=== PATIENT | male | born 1955 | race American Indian/Alaskan Native ===

== ENCOUNTER 2022-04-05 08:47 | Emergency (ER) | payer MEDICARE ==
--- NOTE | 2022-04-05 09:25 | Emergency Department Report ---
ED General Adult HPI - General Chief complaint: Urogenital-Male Stated complaint: CHASE CATHER Time Seen by Provider: 04/05/22 09:10 Source: patient Mode of arrival: Ambulatory Limitations: No Limitations - History of Present Illness Initial comments: The patient was evaluated in the emergency department for symptoms described in the history of present illness. He/she was evaluated in the context of the global COVID-19 pandemic, which necessitated consideration that the patient might be at risk for infection with the virus that causes COVID-19. In stitutional protocols and algorithms that pertain to the evaluation of patients at risk for COVID-19 are in a state of rapid change based on information released by regulatory bodies including the CDC and federal and state organizations. These policies and algorithms were followed during the patient's care in the emergency department. Please note that these policies, procedures and recommendations changed on a rapid basis. This patient is a pleasant and cooperative 67-year-old gentleman, with a chronic indwelling suprapubic Chase catheter, secondary to difficulty with urination secondary to BPH, presents to the emergency room today with a complaint of clogged and nonfunctional suprapubic Chase catheter. He typically follows with [facility], and reports getting his catheter changed once every 4 to 5 weeks. Denies fever, chills, additional complaints, and rectal pain. He subjectively does not feel like he has an infection today. His catheter was discontinued, and replaced in typical sterile fashion, with immediate release of 1100 cc of urine, and patient endorsed complete resolution of symptoms. He endorses readiness for discharge at this time, and denies additional injuries and complaints he reports he is reliable to follow-up with his outpatient physician. -: Sudden Severity scale (0 -10): 10 Consistency: now resolved Improves with: other (Placement of suprapubic Chase catheter) Worsens with: other (Nonfunctioning Chase cath) Associated Symptoms: denies other symptoms - Related Data Allergies Allergy/AdvReac Type Severity Reaction Status Date / Time No Known Allergies Allergy Unverified 04/05/22 09:03 ED Review of Systems ROS: Stated complaint: CHASE CATHER Other details as noted in HPI Comment: All other systems reviewed and negative Gastrointestinal: as per HPI (Suprapubic abdominal pain and distention) Genitourinary: as per HPI, other (Clogged Chase catheter. Inability to urinate). denies: discharge, testicular pain, testicular mass ED Physical Exam - General Limitations: No Limitations General appearance: alert, anxious, in distress - Head Head exam: Present: atraumatic, normocephalic - Eye Eye exam: Present: normal appearance, EOMI. Absent: nystagmus - ENT ENT exam: Present: normal exam, normal orophraynx, mucous membranes moist, normal external ear exam - Neck Neck exam: Present: normal inspection, full ROM. Absent: tenderness, meningismus - Respiratory Respiratory exam: Present: normal lung sounds bilaterally. Absent: respiratory distress, wheezes, rales, rhonchi, stridor, decreased breath sounds - Cardiovascular Cardiovascular Exam: Present: regular rate, normal rhythm, normal heart sounds. Absent: bradycardia, tachycardia, irregular rhythm, systolic murmur, diastolic murmur, rubs, gallop - GI/Abdominal GI/Abdominal exam: Present: soft, distended, other (Suprapubic distention is noted. Suprapubic Chase catheter is noted.). Absent: tenderness, guarding, rebound, rigid - Rectal Rectal exam: Present: deferred - exam: Present: normal inspection, other (Chaperoned by nurse Zehra Jones) External exam: Present: normal external exam - Extremities Exam Extremities exam: Present: normal inspection, full ROM, other (2+ pulses noted in the bilateral lower extremities, and left upper extremity. Patient has a cast/splint in place in the right upper extremity. Moving fingers without diffi culty in the upper extremities.). Absent: pedal edema, calf tenderness - Back Exam Back exam: Present: normal inspection. Absent: tenderness, CVA tenderness (R), CVA tenderness (L), paraspinal tenderness, vertebral tenderness - Neurological Exam Neurological exam: Present: alert, oriented X3, other (No facial droop. Tongue midline. Extraocular movements intact bilaterally. Facial sensation intact to light touch in V1, V2, V3 distribution bilaterally. 5 and a 5 strength in 4 extremities. Sensation intact to light touch in 4 extremities.) - Psychiatric Psychiatric exam: Present: anxious (Prior to placement of Chase cath) - Skin Skin exam: Present: warm, dry, intact, normal color. Absent: rash ED Course Vital Signs 04/05/22 09:05 Temperature 98.5 F Pulse Rate 87 Respiratory 26 H Rate Blood Pressure 172/99 [Left] O2 Sat by Pulse 99 Oximetry ED Medical Decision Making - Lab Data Vital Signs 04/05/22 09:05 Temperature 98.5 F Pulse Rate 87 Respiratory 26 H Rate Blood Pressure 172/99 [Left] O2 Sat by Pulse 99 Oximetry - Medical Decision Making Differential diagnosis, including but not limited to: Suprapubic Chase catheter in place, suprapubic Chase catheter obstruction, encounter for Chase catheter replacement. Assessment and plan: 67-year-old gentleman, initially presenting with urinary retention, secondary to obstructed suprapubic Chase catheter. A 20 [place] suprapubic Chase catheter is replaced with nursing team under direct supervision. Patient has immediate return of yellow urine, and endorses complete resolution of symptoms. Denies fever, chills, and rectal pain. Urine has some sediment, which we would expect. His tachypnea improved, and his elevated blood pressure improved. He endorses readiness for discharge, and reliability to follow-up with his outpatient urologist. He declines pain medication at this time. Return precautions are reviewed. All questions answered Critical care attestation.: If time is entered above; I have spent that time in minutes in the direct care of this critically ill patient, excluding procedure time. ED Disposition Clinical Impression: Chase catheter problem Qualifiers: Encounter type: initial encounter Qualified Code(s): T83.9XXA - Unspecified complication of genitourinary prosthetic device, implant and graft, initial encounter Disposition: HOME / SELF CARE / HOMELESS Is pt being admited?: No Does the pt Need Aspirin: No Condition: Good Instructions: Indwelling Urinary Catheter Care, Adult Additional Instructions: Please continue current outpatient medications. Please follow-up with your outpatient urologist within the next 10 days. Please return to the emergency room right away with new pain, worsened pain, migration of pain, projectile vomiting, change in mental status, confusion, inability tolerate liquid feeds, new, worsened or different symptoms not present on the initial emergency room evaluation Referrals: TERESA IBRAHIMYANDRE [Provider Group] - 3-5 Days
[2022-04-05 09:40] VITALS: BP 152/81
== END 2022-04-05 09:55 | disposition home or self-care (01) ==
LOC: ED 08:47
DX: T83.098A Other mechanical complication of other urinary catheter, initial encounter (principal); Y84.9 Medical procedure, unspecified as the cause of abnormal reaction of the patient, or of later complication, without mention of misadventure at the time of the procedure; Y92.89 Other specified places as the place of occurrence of the external cause
CPT/HCPCS: 51702; 99282

== ENCOUNTER 2022-05-12 18:52 | Emergency (ER) | payer MEDICARE ==
--- NOTE | 2022-05-12 19:03 | Emergency Department Report ---
ED Dysuria HPI - HPI Stated Complaint: CLOGGED CATH Time Seen by Provider: 05/12/22 19:00 Duration: Today Location of Discomfort: Urethra (dysuria) Severity: Severe Symptoms: Dysuria: No, Frequency: No, Suprapubic Pain: Yes, Flank Pain: No, Fever: No, Hematuria: No, Abdominal Pain: No, Previous UTI's: No Other History: Patient is a 67-year-old male. He follows with Dr. godinez. He has a suprapubic catheter that is clogged. Comes in with severe suprapubic pain ED Review of Systems ROS: Stated complaint: CLOGGED CATH Other details as noted in HPI Comment: All other systems reviewed and negative ED Past Medical Hx - Past Medical History Previous Medical History?: Yes - Surgical History Past Surgical History?: Yes - Family History Family history: no significant - Social History Smoking Status: Never Smoker Substance Use Type: None Dysuria Exam - Exam General: Vital signs noted. No distress. Alert and acting appropriately. Exam: Yes Moist Mucous Membranes, No CVA Tenderness, No Abdominal Tenderness, No Rigidity or Guarding ED Medical Decision Making - Medical Decision Making Vital Signs 05/12/22 19:32 Temperature 97.9 F Pulse Rate 75 Respiratory 18 Rate Blood Pressure 172/94 O2 Sat by Pulse 95 Oximetry We were unable to flush the suprapubic catheter. Therefore it had to be changed out. New leg bag applied. Suprapubic site cleaned and dressed. Patient is to follow-up with Dr. Pritchard in the morning to ensure the right sinus catheter is in place. Patient being discharged home with discharge plan of care including diet, activity medications and follow-up. He verbalizes understanding. He has normal vital signs, is taking p.o. and has no fever. - Differential Diagnosis suprapubic baker changed Critical care attestation.: If time is entered above; I have spent that time in minutes in the direct care of this critically ill patient, excluding procedure time. ED Disposition Clinical Impression: Urinary retention Complication, blocked suprapubic catheter Qualifiers: Encounter type: initial encounter Qualified Code(s): T83.090A - Other mechanical complication of cystostomy catheter, initial encounter Disposition: HOME / SELF CARE / HOMELESS Is pt being admited?: No Does the pt Need Aspirin: No Condition: Stable Instructions: Acute Urinary Retention, Male, [id number] Additional Instructions: follow up with urology in AM Referrals: BETTY CEDILLO MD [Staff Physician] - 3-5 Days Time of Disposition: 19:24
[2022-05-12 19:39] VITALS: BP 172/94
== END 2022-05-12 19:40 | disposition home or self-care (01) ==
LOC: ED 18:52
DX: T83.89XA Other specified complication of genitourinary prosthetic devices, implants and grafts, initial encounter (principal); R33.9 Retention of urine, unspecified; Z98.890 Other specified postprocedural states; Y69 Unspecified misadventure during surgical and medical care; Y92.89 Other specified places as the place of occurrence of the external cause
CPT/HCPCS: 51702; 51798; 99282